=== PATIENT | female | born 1935 | race Caucasian/White ===

== ENCOUNTER 2018-09-17 18:18 | Emergency (ER) | payer MEDICARE ==
[~2018-09-17] VITALS: Ht 149.9 cm; Wt 31.8 kg
[2018-09-17 18:27] VITALS: Ht 149.9 cm; Wt 31.8 kg
[2018-09-17 19:45] LABS: UA SPECIFIC GRAVITY >=1.030 (1.005-1.035); microscopic required? YES; urine erythrocyte NEGATIVE (NEGATIVE)
[2018-09-17 19:54] LABS: BASOPHIL % 0.3 % (0-2); PLATELET COUNT 239 x10^3mcL (130-400); RED CELL DISTRIBUTION WIDTH 14.4 % (11.5-14.5)
[2018-09-17 20:06] LABS: CALCIUM 9.7 mg/dL (8.5-10.1); CARBON DIOXIDE 26.7 mmol/L (21-32); CHLORIDE SERUM 104 mmol/L (98-107); CREATININE SERUM 0.7 mg/dL (0.6-1.0); GLUCOSE SERUM 92 mg/dL (74-106); POTASSIUM SERUM 3.1 mmol/L (3.5-5.1); SODIUM SERUM 143 mmol/L (136-145)
[2018-09-17 20:10] LABS: ALBUMIN 3.4 g/dL (3.4-5.0); ALKALINE PHOSPHATASE 61 U/L (46-116); ALT/SGPT 19 U/L (14-59); AST/SGOT 29 U/L (15-37); BILIRUBIN TOTAL 0.7 mg/dL (0.20-1.00); MAGNESIUM 2.1 mg/dL (1.8-2.4); PHOSPHOROUS 3.6 mg/dL (2.5-4.9)
[2018-09-17 20:11] LABS: CHOLESTEROL 217 mg/dL (<200); HDL CHOLESTEROL 68 mg/dL (40-60); TOTAL PROTEIN, SERUM 8.4 g/dL (6.4-8.2)
[2018-09-17 20:32] LABS: FREE T4 1.09 ng/dL (0.76-1.46); FREE THYROXINE INDEX 2.5 ug/dL (1.4-4.5); T4(THYROXINE) 7.2 ug/dL (4.7-13.3)
[2018-09-17] MEDS ORDERED: LEVOTHYROXIN0.025 M2 PO (20:50)
[2018-09-17] MEDS ORDERED: LOSARTAN POTAS100 M1 PO (20:50)
[2018-09-17] MEDS ORDERED: ATORVASTATIN CA40 M1 PO (20:51)
[2018-09-17] MEDS ORDERED: PAROXETINE10 M1 PO (20:51)
[2018-09-17] MEDS ORDERED: AMLODIPINE VALS PO (20:51)
[2018-09-17] MEDS ORDERED: HALOPERIDOL2 MG PO (20:52)
[2018-09-17] MEDS ORDERED: ASPIR LOW81 MG PO (20:52)
[2018-09-17 21:22] LABS: T3 TOTAL 0.64 ng/mL
[2018-09-18 00:32] VITALS: BP 151/80
== END 2018-09-18 00:32 | disposition short-term general hospital (02) ==
LOC: ED 18:18
PROVIDERS: Emergency Medicine
DX: R62.7 Adult failure to thrive (principal); E46 Unspecified protein-calorie malnutrition; E87.6 Hypokalemia; E86.0 Dehydration; F03.90 Unspecified dementia, unspecified severity, without behavioral disturbance, psychotic disturbance, mood disturbance, and anxiety
CPT/HCPCS: 84439; J3490; Q0092